=== PATIENT | male | born 1990 | race Caucasian/White ===

== ENCOUNTER 2021-11-04 16:17 | Inpatient (IN) | payer OTHER ==
[~2021-11-04] VITALS: Ht 188 cm; Wt 109.8 kg
[2021-11-04 21:10] VITALS: BP 121/61
[2021-11-04] MEDS ORDERED: VALPROIC ACID 250 MG CAPSULE PO SCH (21:30)
[2021-11-04] MEDS ORDERED: ALBUTEROL SULFATE 2.5 MG/0.5 ML NEB SOLUTION NEB PRN (21:30)
[2021-11-04] MEDS ORDERED: IPRATROPIUM BROMIDE 0.5 MG/2.5 ML NEB SOLUTION NEB PRN (21:30)
[2021-11-04] MEDS ORDERED: ACETAMINOPHEN 325 MG TABLET PO PRN (21:30)
[2021-11-04] MEDS ORDERED: SODIUM CHLORIDE 0.9% 250 ML IV ONE (22:13)
[2021-11-04] MEDS: CHLORHEXIDINE GLUCONATE 0.12% 15 ML UDCUP ORAL RINSE PO SCH (22:29)
[2021-11-04] MEDS: MEROPENEM 2 GM in SODIUM CHLORIDE 0.9% 100 ML IV SCH (22:32)
[2021-11-04] MEDS: ETHYL ALCOHOL 62% ANTISEPTIC NASAL SANITIZER 0.6 ML AMPUL NASAL SCH (22:36)
[2021-11-05] VITALS (7 sets, daily range): BP systolic 116–141; BP diastolic 65–78
[2021-11-05] MEDS ORDERED: CloNIDine HCL 0.2 MG TABLET PO SCH
[2021-11-05] MEDS ORDERED: ACETAMINOPHEN 325 MG TABLET PO SCH
[2021-11-05] MEDS: VALPROIC ACID 250 MG CAPSULE PO SCH ×4 (00:14→23:48)
[2021-11-05] MEDS: MELATONIN 5 MG TABLET PO SCH ×2 (00:14→20:39)
[2021-11-05] MEDS: DIAZEPAM 2 MG TABLET PO SCH ×4 (00:15→23:47)
[2021-11-05] MEDS: CloNIDine HCL 0.2 MG TABLET PO SCH ×5 (00:15→23:48)
[2021-11-05] MEDS: PROPRANOLOL HCL 20 MG TABLET PO SCH ×5 (00:15→23:48)
[2021-11-05] MEDS: 0.9% SODIUM CHLORIDE 10 ML SYRINGE IVP SCH ×4 (00:35→23:45)
[2021-11-05] MEDS: MEROPENEM 2 GM in SODIUM CHLORIDE 0.9% 100 ML IV SCH ×3 (05:47→22:02)
[2021-11-05] MEDS: ACETAMINOPHEN 325 MG TABLET PO SCH ×3 (05:50→17:36)
[2021-11-05 06:57] LABS: BASOPHILS % (AUTO) 2.2 % (0.0-2.0); EOSINOPHILS % (AUTO) 9.4 % (1.0-6.0); HEMATOCRIT 34.8 % (41-53); HEMOGLOBIN 11.7 g/dL (13.5-17.5); LYMPHOCYTES # (AUTO) 1.8 K/uL (1.0-4.8); LYMPHOCYTES % (AUTO) 35.7 % (22.0-44.0); MEAN CORPUSCULAR HEMOGLOBIN 28.2 pg (26.0-34.0); MEAN CORPUSCULAR HGB CONC 33.7 G/dL (31.0-37.0); MEAN CORPUSCULAR VOLUME 84 fL (80-100); MONOCYTES # (AUTO) 0.4 K/uL (0.1-1.0); MONOCYTES % (AUTO) 8.6 % (2.0-9.0); NEUTROPHILS # (AUTO) 2.2 K/uL (1.8-7.7); NEUTROPHILS % (AUTO) 44.1 % (40.0-70.0); PLATELET COUNT (AUTO) 215 K/uL (150-450); RED BLOOD CELL COUNT(AUTO) 4.16 MIL/uL (4.50-5.90); RED CELL DISTRIBUTION WIDTH 16.8 % (11.5-14.5)
[2021-11-05 07:08] LABS: ALANINE AMINOTRANSFERASE 33 U/L (12-78); ALBUMIN 3.2 g/dL (3.4-5.0); ALKALINE PHOSPHATASE 212 U/L (46-116); ANION GAP 9 mmol/L (8-16); ASPARTATE AMINOTRANSFERASE 21 U/L (15-37); BILIRUBIN,TOTAL 0.4 mg/dL (0.1-1.0); CALCIUM, TOTAL 9.3 mg/dL (8.8-10.5); CARBON DIOXIDE 28 mmol/L (22-29); CHLORIDE 103 mmol/L (98-107); CREATININE 0.74 mg/dL (0.60-1.30); GLOMERULAR FILTR. RATE CALC > 60 mL/min (>60); GLUCOSE,RANDOM 89 mg/dL (70-110); POTASSIUM 4.1 mmol/L (3.5-5.1); SODIUM SERUM 140 mmol/L (136-145); UREA NITROGEN, BLOOD 13 mg/dL (7-18)
[2021-11-05] MEDS: FERROUS SULFATE 325 MG EC TABLET PO SCH ×2 (08:39→16:22)
[2021-11-05] MEDS: POLYETHYLENE GLYCOL 3350 17 GM PACKET PO SCH ×2 (08:42→20:39)
[2021-11-05] MEDS: DOCUSATE SODIUM 100 MG CAPSULE PO SCH ×2 (08:42→20:37)
[2021-11-05] MEDS: ETHYL ALCOHOL 62% ANTISEPTIC NASAL SANITIZER 0.6 ML AMPUL NASAL SCH ×2 (08:42→20:37)
[2021-11-05] MEDS: CHLORHEXIDINE GLUCONATE 0.12% 15 ML UDCUP ORAL RINSE PO SCH ×3 (08:43→20:39)
[2021-11-05] MEDS: MULTIVITAMINS WITH MINERALS, THERAPEUTIC TABLET PO SCH (08:44)
[2021-11-05] MEDS: QUEtiapine FUMARATE 25 MG TABLET PO SCH ×3 (08:46→16:25)
[2021-11-05] MEDS: ENOXAPARIN SODIUM 60 MG/0.6 ML PF SYRINGE SQ SCH ×2 (10:05→20:40)
[2021-11-05] MEDS: AMPICILLIN SODIUM 2 GM/NS 100 ML IV SCH ×3 (13:38→20:37)
[2021-11-05] MEDS: QUEtiapine FUMARATE 100 MG TABLET PO SCH (20:38)
[2021-11-05] MEDS: SENNA 187 MG TABLET PO SCH (20:38)
[2021-11-05] MEDS: CHLORHEXIDINE GLUCONATE 4% 118 ML TOPICAL LIQUID TP SCH (20:39)
[2021-11-05] MEDS ORDERED: MELATONIN 5 MG TABLET PO SCH (21:00)
[2021-11-06] VITALS: BP 116/67
[2021-11-06] MEDS: ACETAMINOPHEN 325 MG TABLET PO SCH ×4 (00:19→17:55)
[2021-11-06] MEDS: AMPICILLIN SODIUM 2 GM/NS 100 ML IV SCH ×6 (01:01→19:47)
[2021-11-06] MEDS ORDERED: SODIUM CHLORIDE 0.9% 250 ML IV ONE (04:02)
[2021-11-06] MEDS: MEROPENEM 2 GM in SODIUM CHLORIDE 0.9% 100 ML IV SCH ×3 (06:17→22:10)
[2021-11-06] MEDS: CloNIDine HCL 0.2 MG TABLET PO SCH ×3 (06:18→17:29)
[2021-11-06] MEDS: 0.9% SODIUM CHLORIDE 10 ML SYRINGE IVP SCH ×2 (08:00→15:45)
[2021-11-06 09:00] VITALS: BP 106/54
[2021-11-06] MEDS: ETHYL ALCOHOL 62% ANTISEPTIC NASAL SANITIZER 0.6 ML AMPUL NASAL SCH ×2 (09:57→19:48)
[2021-11-06] MEDS: FERROUS SULFATE 325 MG EC TABLET PO SCH ×2 (09:58→16:38)
[2021-11-06] MEDS: DIAZEPAM 2 MG TABLET PO SCH ×2 (10:02→15:46)
[2021-11-06] MEDS: VALPROIC ACID 250 MG CAPSULE PO SCH ×2 (10:03→15:45)
[2021-11-06] MEDS: PROPRANOLOL HCL 20 MG TABLET PO SCH ×2 (10:05→15:45)
[2021-11-06] MEDS: POLYETHYLENE GLYCOL 3350 17 GM PACKET PO SCH ×2 (10:07→19:49)
[2021-11-06] MEDS: DOCUSATE SODIUM 100 MG CAPSULE PO SCH ×2 (10:07→19:48)
[2021-11-06] MEDS: QUEtiapine FUMARATE 25 MG TABLET PO SCH ×3 (10:08→16:38)
[2021-11-06] MEDS: CHLORHEXIDINE GLUCONATE 0.12% 15 ML UDCUP ORAL RINSE PO SCH ×3 (10:08→19:49)
[2021-11-06] MEDS: MULTIVITAMINS WITH MINERALS, THERAPEUTIC TABLET PO SCH (10:09)
[2021-11-06] MEDS: ENOXAPARIN SODIUM 60 MG/0.6 ML PF SYRINGE SQ SCH ×2 (10:09→19:50)
[2021-11-06 16:30] VITALS: BP 123/71
[2021-11-06] MEDS: SENNA 187 MG TABLET PO SCH (19:49)
[2021-11-06] MEDS: MELATONIN 5 MG TABLET PO SCH (19:49)
[2021-11-06] MEDS: QUEtiapine FUMARATE 100 MG TABLET PO SCH (19:50)
[2021-11-06] MEDS: CHLORHEXIDINE GLUCONATE 4% 118 ML TOPICAL LIQUID TP SCH (19:50)
[2021-11-07 00:20] VITALS: BP 130/86
[2021-11-07] MEDS: CloNIDine HCL 0.2 MG TABLET PO SCH ×4 (00:34→17:46)
[2021-11-07] MEDS: VALPROIC ACID 250 MG CAPSULE PO SCH ×3 (00:34→16:27)
[2021-11-07] MEDS: PROPRANOLOL HCL 20 MG TABLET PO SCH ×3 (00:34→16:31)
[2021-11-07] MEDS: DIAZEPAM 2 MG TABLET PO SCH ×3 (00:34→20:37)
[2021-11-07] MEDS: ACETAMINOPHEN 325 MG TABLET PO SCH ×4 (00:35→17:55)
[2021-11-07] MEDS: AMPICILLIN SODIUM 2 GM/NS 100 ML IV SCH ×7 (00:39→23:18)
[2021-11-07] MEDS: 0.9% SODIUM CHLORIDE 10 ML SYRINGE IVP SCH ×3 (00:49→16:26)
[2021-11-07] MEDS: MEROPENEM 2 GM in SODIUM CHLORIDE 0.9% 100 ML IV SCH ×3 (05:43→21:41)
[2021-11-07 05:55] VITALS: BP 139/82
[2021-11-07] MEDS: CHLORHEXIDINE GLUCONATE 0.12% 15 ML UDCUP ORAL RINSE PO SCH ×3 (08:31→20:38)
[2021-11-07] MEDS: ETHYL ALCOHOL 62% ANTISEPTIC NASAL SANITIZER 0.6 ML AMPUL NASAL SCH ×2 (08:31→20:35)
[2021-11-07] MEDS: POLYETHYLENE GLYCOL 3350 17 GM PACKET PO SCH ×2 (08:32→20:39)
[2021-11-07] MEDS: QUEtiapine FUMARATE 25 MG TABLET PO SCH ×2 (08:34→12:29)
[2021-11-07] MEDS: FERROUS SULFATE 325 MG EC TABLET PO SCH ×2 (08:34→17:38)
[2021-11-07] MEDS: MULTIVITAMINS WITH MINERALS, THERAPEUTIC TABLET PO SCH (08:35)
[2021-11-07] MEDS: DOCUSATE SODIUM 100 MG CAPSULE PO SCH ×2 (08:35→20:36)
[2021-11-07] MEDS: ENOXAPARIN SODIUM 60 MG/0.6 ML PF SYRINGE SQ SCH (08:37)
[2021-11-07 11:04] VITALS: BP 141/82
[2021-11-07] MEDS ORDERED: OxyCODONE HCL 5 MG IR TABLET PO PRN (11:45)
[2021-11-07 12:00] VITALS: BP 133/73
[2021-11-07] MEDS ORDERED: SODIUM CHLORIDE 0.9% 250 ML IV ONE (14:07)
[2021-11-07 16:05] VITALS: BP 115/63
[2021-11-07 17:30] VITALS: BP 130/70
[2021-11-07] MEDS: SENNA 187 MG TABLET PO SCH (20:36)
[2021-11-07] MEDS: MELATONIN 5 MG TABLET PO SCH (20:37)
[2021-11-07] MEDS: ENOXAPARIN SODIUM 100 MG/ML PF SYRINGE SQ SCH (20:39)
[2021-11-07] MEDS: CHLORHEXIDINE GLUCONATE 4% 118 ML TOPICAL LIQUID TP SCH (20:40)
[2021-11-07] MEDS: QUEtiapine FUMARATE 100 MG TABLET PO SCH (20:41)
[2021-11-08 01:10] VITALS: BP 121/68
[2021-11-08] MEDS: PROPRANOLOL HCL 20 MG TABLET PO SCH ×4 (01:12→23:33)
[2021-11-08] MEDS: CloNIDine HCL 0.2 MG TABLET PO SCH ×5 (01:13→23:33)
[2021-11-08] MEDS: VALPROIC ACID 250 MG CAPSULE PO SCH ×4 (01:13→23:33)
[2021-11-08] MEDS: ACETAMINOPHEN 325 MG TABLET PO SCH ×4 (01:13→18:10)
[2021-11-08] MEDS: AMPICILLIN SODIUM 2 GM/NS 100 ML IV SCH ×6 (04:54→23:34)
[2021-11-08] MEDS: MEROPENEM 2 GM in SODIUM CHLORIDE 0.9% 100 ML IV SCH ×3 (05:32→21:22)
[2021-11-08 06:00] VITALS: BP 120/74
[2021-11-08] MEDS: FERROUS SULFATE 325 MG EC TABLET PO SCH ×2 (07:47→18:10)
[2021-11-08] MEDS: ETHYL ALCOHOL 62% ANTISEPTIC NASAL SANITIZER 0.6 ML AMPUL NASAL SCH ×2 (07:59→21:22)
[2021-11-08] MEDS: POLYETHYLENE GLYCOL 3350 17 GM PACKET PO SCH ×2 (08:00→21:20)
[2021-11-08] MEDS: MULTIVITAMINS WITH MINERALS, THERAPEUTIC TABLET PO SCH (08:01)
[2021-11-08] MEDS: DIAZEPAM 2 MG TABLET PO SCH ×2 (08:01→21:21)
[2021-11-08] MEDS: QUEtiapine FUMARATE 25 MG TABLET PO SCH ×2 (08:01→12:43)
[2021-11-08] MEDS: DOCUSATE SODIUM 100 MG CAPSULE PO SCH ×2 (08:02→21:20)
[2021-11-08 08:03] VITALS: BP 114/64
[2021-11-08] MEDS: ENOXAPARIN SODIUM 100 MG/ML PF SYRINGE SQ SCH ×2 (08:28→21:21)
[2021-11-08] MEDS: CHLORHEXIDINE GLUCONATE 0.12% 15 ML UDCUP ORAL RINSE PO SCH ×3 (08:28→21:19)
[2021-11-08] MEDS: 0.9% SODIUM CHLORIDE 10 ML SYRINGE IVP SCH ×3 (08:29→15:30)
[2021-11-08 12:29] VITALS: BP 125/71
[2021-11-08] MEDS: OxyCODONE HCL 5 MG IR TABLET PO PRN (14:29)
[2021-11-08 16:01] VITALS: BP 127/68
[2021-11-08 18:00] VITALS: BP 115/66
[2021-11-08] MEDS: MELATONIN 5 MG TABLET PO SCH (21:20)
[2021-11-08] MEDS: SENNA 187 MG TABLET PO SCH (21:20)
[2021-11-08] MEDS: QUEtiapine FUMARATE 100 MG TABLET PO SCH (21:21)
[2021-11-08] MEDS: CHLORHEXIDINE GLUCONATE 4% 118 ML TOPICAL LIQUID TP SCH (21:22)
[2021-11-09 00:13] VITALS: BP 106/61
[2021-11-09] MEDS: 0.9% SODIUM CHLORIDE 10 ML SYRINGE IVP SCH ×4 (00:16→23:44)
[2021-11-09] MEDS: ACETAMINOPHEN 325 MG TABLET PO SCH ×4 (01:28→18:44)
[2021-11-09] MEDS: AMPICILLIN SODIUM 2 GM/NS 100 ML IV SCH ×6 (03:47→23:35)
[2021-11-09] MEDS: MEROPENEM 2 GM in SODIUM CHLORIDE 0.9% 100 ML IV SCH ×3 (05:26→22:01)
[2021-11-09 05:27] VITALS: BP 122/60
[2021-11-09] MEDS: CloNIDine HCL 0.2 MG TABLET PO SCH ×3 (05:27→18:07)
[2021-11-09] MEDS: CHLORHEXIDINE GLUCONATE 0.12% 15 ML UDCUP ORAL RINSE PO SCH ×3 (08:21→21:21)
[2021-11-09] MEDS: POLYETHYLENE GLYCOL 3350 17 GM PACKET PO SCH ×2 (08:21→21:21)
[2021-11-09] MEDS: ENOXAPARIN SODIUM 100 MG/ML PF SYRINGE SQ SCH ×2 (08:22→21:22)
[2021-11-09] MEDS: VALPROIC ACID 250 MG CAPSULE PO SCH ×2 (08:22→15:40)
[2021-11-09] MEDS: PROPRANOLOL HCL 20 MG TABLET PO SCH ×2 (08:22→15:49)
[2021-11-09] MEDS: DIAZEPAM 2 MG TABLET PO SCH ×2 (08:23→21:23)
[2021-11-09] MEDS: MULTIVITAMINS WITH MINERALS, THERAPEUTIC TABLET PO SCH (08:23)
[2021-11-09] MEDS: DOCUSATE SODIUM 100 MG CAPSULE PO SCH ×2 (08:23→21:20)
[2021-11-09] MEDS: QUEtiapine FUMARATE 25 MG TABLET PO SCH ×2 (08:23→12:31)
[2021-11-09] MEDS: ETHYL ALCOHOL 62% ANTISEPTIC NASAL SANITIZER 0.6 ML AMPUL NASAL SCH ×2 (08:23→21:18)
[2021-11-09] MEDS: FERROUS SULFATE 325 MG EC TABLET PO SCH ×2 (08:23→16:47)
[2021-11-09 10:57] VITALS: BP 135/81
[2021-11-09 12:25] VITALS: BP 137/77
[2021-11-09 16:05] VITALS: BP 122/78
[2021-11-09] MEDS ORDERED: SODIUM CHLORIDE 0.9% 250 ML IV ONE (20:40)
[2021-11-09 21:00] VITALS: BP 132/75
[2021-11-09] MEDS: QUEtiapine FUMARATE 100 MG TABLET PO SCH (21:21)
[2021-11-09] MEDS: SENNA 187 MG TABLET PO SCH (21:21)
[2021-11-09] MEDS: MELATONIN 5 MG TABLET PO SCH (21:21)
[2021-11-09] MEDS: CHLORHEXIDINE GLUCONATE 4% 118 ML TOPICAL LIQUID TP SCH (21:22)
[2021-11-10] VITALS: BP 114/72
[2021-11-10] MEDS: CloNIDine HCL 0.2 MG TABLET PO SCH ×5 (00:17→23:31)
[2021-11-10] MEDS: PROPRANOLOL HCL 20 MG TABLET PO SCH ×4 (00:17→23:31)
[2021-11-10] MEDS: VALPROIC ACID 250 MG CAPSULE PO SCH ×4 (00:19→23:31)
[2021-11-10] MEDS: ACETAMINOPHEN 325 MG TABLET PO SCH ×5 (02:09→23:31)
[2021-11-10] MEDS: AMPICILLIN SODIUM 2 GM/NS 100 ML IV SCH ×5 (03:56→22:26)
[2021-11-10] MEDS: MEROPENEM 2 GM in SODIUM CHLORIDE 0.9% 100 ML IV SCH ×3 (06:16→21:45)
[2021-11-10] MEDS: POLYETHYLENE GLYCOL 3350 17 GM PACKET PO SCH ×2 (09:00→20:24)
[2021-11-10 09:06] VITALS: BP 113/61
[2021-11-10] MEDS: FERROUS SULFATE 325 MG EC TABLET PO SCH ×2 (09:24→17:13)
[2021-11-10] MEDS: 0.9% SODIUM CHLORIDE 10 ML SYRINGE IVP SCH ×3 (09:24→23:52)
[2021-11-10] MEDS: DIAZEPAM 2 MG TABLET PO SCH ×2 (09:25→20:26)
[2021-11-10] MEDS: CHLORHEXIDINE GLUCONATE 0.12% 15 ML UDCUP ORAL RINSE PO SCH ×3 (09:25→20:25)
[2021-11-10] MEDS: MULTIVITAMINS WITH MINERALS, THERAPEUTIC TABLET PO SCH (09:25)
[2021-11-10] MEDS: QUEtiapine FUMARATE 25 MG TABLET PO SCH (09:25)
[2021-11-10] MEDS: DOCUSATE SODIUM 100 MG CAPSULE PO SCH ×2 (09:25→20:23)
[2021-11-10] MEDS: ENOXAPARIN SODIUM 100 MG/ML PF SYRINGE SQ SCH ×2 (09:25→20:26)
[2021-11-10] MEDS: ETHYL ALCOHOL 62% ANTISEPTIC NASAL SANITIZER 0.6 ML AMPUL NASAL SCH ×2 (09:25→20:22)
[2021-11-10 14:14] VITALS: BP 131/79
[2021-11-10 16:05] VITALS: BP 120/78
[2021-11-10] MEDS: MELATONIN 5 MG TABLET PO SCH (20:24)
[2021-11-10] MEDS: QUEtiapine FUMARATE 100 MG TABLET PO SCH (20:25)
[2021-11-10] MEDS: SENNA 187 MG TABLET PO SCH (20:25)
[2021-11-10] MEDS: CHLORHEXIDINE GLUCONATE 4% 118 ML TOPICAL LIQUID TP SCH (20:25)
[2021-11-10 21:00] VITALS: BP 131/76
[2021-11-11] VITALS: BP 112/59
[2021-11-11] MEDS: AMPICILLIN SODIUM 2 GM/NS 100 ML IV SCH ×6 (03:10→22:30)
[2021-11-11] MEDS: MEROPENEM 2 GM in SODIUM CHLORIDE 0.9% 100 ML IV SCH ×3 (05:46→21:52)
[2021-11-11] MEDS: CloNIDine HCL 0.2 MG TABLET PO SCH ×3 (05:51→23:38)
[2021-11-11] MEDS: ACETAMINOPHEN 325 MG TABLET PO SCH ×4 (05:52→23:32)
[2021-11-11 06:00] VITALS: BP 115/69
[2021-11-11] MEDS: ENOXAPARIN SODIUM 100 MG/ML PF SYRINGE SQ SCH ×2 (08:07→20:43)
[2021-11-11] MEDS: CHLORHEXIDINE GLUCONATE 0.12% 15 ML UDCUP ORAL RINSE PO SCH ×3 (08:07→20:44)
[2021-11-11 08:08] LABS: BASOPHILS % (AUTO) 3.1 % (0.0-2.0); EOSINOPHILS % (AUTO) 7.5 % (1.0-6.0); HEMATOCRIT 36.6 % (41-53); HEMOGLOBIN 12.1 g/dL (13.5-17.5); LYMPHOCYTES # (AUTO) 1.6 K/uL (1.0-4.8); LYMPHOCYTES % (AUTO) 34.8 % (22.0-44.0); MEAN CORPUSCULAR HEMOGLOBIN 28.1 pg (26.0-34.0); MEAN CORPUSCULAR HGB CONC 33.1 G/dL (31.0-37.0); MEAN CORPUSCULAR VOLUME 85 fL (80-100); MONOCYTES # (AUTO) 0.5 K/uL (0.1-1.0); MONOCYTES % (AUTO) 10.3 % (2.0-9.0); NEUTROPHILS % (AUTO) 44.3 % (40.0-70.0); PLATELET COUNT (AUTO) 182 K/uL (150-450); RED BLOOD CELL COUNT(AUTO) 4.32 MIL/uL (4.50-5.90); RED CELL DISTRIBUTION WIDTH 16.2 % (11.5-14.5)
[2021-11-11] MEDS: PROPRANOLOL HCL 20 MG TABLET PO SCH ×3 (08:08→23:38)
[2021-11-11] MEDS: VALPROIC ACID 250 MG CAPSULE PO SCH ×3 (08:08→23:38)
[2021-11-11] MEDS: ETHYL ALCOHOL 62% ANTISEPTIC NASAL SANITIZER 0.6 ML AMPUL NASAL SCH ×2 (08:08→20:42)
[2021-11-11] MEDS: FERROUS SULFATE 325 MG EC TABLET PO SCH ×2 (08:08→16:51)
[2021-11-11] MEDS: MULTIVITAMINS WITH MINERALS, THERAPEUTIC TABLET PO SCH (08:08)
[2021-11-11] MEDS: DOCUSATE SODIUM 100 MG CAPSULE PO SCH ×2 (08:08→20:44)
[2021-11-11] MEDS: POLYETHYLENE GLYCOL 3350 17 GM PACKET PO SCH ×2 (08:09→20:43)
[2021-11-11] MEDS: 0.9% SODIUM CHLORIDE 10 ML SYRINGE IVP SCH ×3 (08:10→23:25)
[2021-11-11 08:17] LABS: ANION GAP 6 mmol/L (8-16); CARBON DIOXIDE 29 mmol/L (22-29); CHLORIDE 106 mmol/L (98-107); CREATININE 0.69 mg/dL (0.60-1.30); GLUCOSE,RANDOM 87 mg/dL (70-110); SODIUM SERUM 141 mmol/L (136-145); UREA NITROGEN, BLOOD 13 mg/dL (7-18)
[2021-11-11 08:18] LABS: GLOMERULAR FILTR. RATE CALC > 60 mL/min (>60)
[2021-11-11 08:28] LABS: VALPROIC ACID < 3 mcg/mL (50-100)
[2021-11-11] MEDS ORDERED: QUEtiapine FUMARATE 25 MG TABLET PO SCH (09:00)
[2021-11-11 09:15] VITALS: BP 126/73
[2021-11-11 16:30] VITALS: BP 120/74
[2021-11-11] MEDS: SENNA 187 MG TABLET PO SCH (20:42)
[2021-11-11] MEDS: DIAZEPAM 2 MG TABLET PO SCH (20:43)
[2021-11-11] MEDS: QUEtiapine FUMARATE 100 MG TABLET PO SCH (20:44)
[2021-11-11] MEDS: MELATONIN 5 MG TABLET PO SCH (20:44)
[2021-11-11] MEDS: CHLORHEXIDINE GLUCONATE 4% 118 ML TOPICAL LIQUID TP SCH (20:56)
[2021-11-11 21:05] VITALS: BP 132/68
[2021-11-12] VITALS: BP 121/68
[2021-11-12] MEDS: AMPICILLIN SODIUM 2 GM/NS 100 ML IV SCH ×6 (03:31→22:33)
[2021-11-12] MEDS: MEROPENEM 2 GM in SODIUM CHLORIDE 0.9% 100 ML IV SCH ×3 (05:51→21:28)
[2021-11-12] MEDS: ACETAMINOPHEN 325 MG TABLET PO SCH ×3 (06:00→17:59)
[2021-11-12] MEDS: MULTIVITAMINS WITH MINERALS, THERAPEUTIC TABLET PO SCH (07:14)
[2021-11-12] MEDS: PROPRANOLOL HCL 20 MG TABLET PO SCH ×3 (07:14→23:27)
[2021-11-12] MEDS: POLYETHYLENE GLYCOL 3350 17 GM PACKET PO SCH ×2 (07:14→21:15)
[2021-11-12] MEDS: ENOXAPARIN SODIUM 100 MG/ML PF SYRINGE SQ SCH ×2 (07:14→21:18)
[2021-11-12] MEDS: FERROUS SULFATE 325 MG EC TABLET PO SCH ×2 (07:14→17:41)
[2021-11-12] MEDS: VALPROIC ACID 250 MG CAPSULE PO SCH ×3 (07:14→23:25)
[2021-11-12] MEDS: CHLORHEXIDINE GLUCONATE 0.12% 15 ML UDCUP ORAL RINSE PO SCH ×3 (07:14→21:18)
[2021-11-12] MEDS: DOCUSATE SODIUM 100 MG CAPSULE PO SCH ×2 (07:14→21:15)
[2021-11-12 07:15] VITALS: BP 144/83
[2021-11-12] MEDS: CloNIDine HCL 0.2 MG TABLET PO SCH ×3 (07:21→23:25)
[2021-11-12] MEDS: ETHYL ALCOHOL 62% ANTISEPTIC NASAL SANITIZER 0.6 ML AMPUL NASAL SCH ×2 (07:31→21:15)
[2021-11-12] MEDS: 0.9% SODIUM CHLORIDE 10 ML SYRINGE IVP SCH ×3 (09:05→23:35)
[2021-11-12 16:03] VITALS: BP 129/67
[2021-11-12 20:40] VITALS: BP 133/67
[2021-11-12] MEDS: SENNA 187 MG TABLET PO SCH (21:16)
[2021-11-12] MEDS: MELATONIN 5 MG TABLET PO SCH (21:16)
[2021-11-12] MEDS: DIAZEPAM 2 MG TABLET PO SCH (21:17)
[2021-11-12] MEDS: QUEtiapine FUMARATE 100 MG TABLET PO SCH (21:18)
[2021-11-12] MEDS: CHLORHEXIDINE GLUCONATE 4% 118 ML TOPICAL LIQUID TP SCH (21:18)
[2021-11-13] VITALS: BP 130/74
[2021-11-13] MEDS: ACETAMINOPHEN 325 MG TABLET PO SCH ×4 (00:28→17:59)
[2021-11-13] MEDS: AMPICILLIN SODIUM 2 GM/NS 100 ML IV SCH ×6 (03:29→22:25)
[2021-11-13] MEDS: MEROPENEM 2 GM in SODIUM CHLORIDE 0.9% 100 ML IV SCH ×3 (05:47→21:22)
[2021-11-13] MEDS: FERROUS SULFATE 325 MG EC TABLET PO SCH ×2 (07:56→17:24)
[2021-11-13] MEDS: CloNIDine HCL 0.2 MG TABLET PO SCH ×3 (07:59→23:20)
[2021-11-13] MEDS: VALPROIC ACID 250 MG CAPSULE PO SCH ×3 (08:00→23:19)
[2021-11-13] MEDS: PROPRANOLOL HCL 20 MG TABLET PO SCH ×3 (08:00→23:18)
[2021-11-13] MEDS: ETHYL ALCOHOL 62% ANTISEPTIC NASAL SANITIZER 0.6 ML AMPUL NASAL SCH ×2 (08:01→21:07)
[2021-11-13] MEDS: DOCUSATE SODIUM 100 MG CAPSULE PO SCH ×2 (08:01→21:05)
[2021-11-13] MEDS: CHLORHEXIDINE GLUCONATE 0.12% 15 ML UDCUP ORAL RINSE PO SCH ×3 (08:01→21:07)
[2021-11-13] MEDS: MULTIVITAMINS WITH MINERALS, THERAPEUTIC TABLET PO SCH (08:01)
[2021-11-13] MEDS: POLYETHYLENE GLYCOL 3350 17 GM PACKET PO SCH ×2 (08:01→21:07)
[2021-11-13] MEDS: ENOXAPARIN SODIUM 100 MG/ML PF SYRINGE SQ SCH ×2 (08:02→21:08)
[2021-11-13] MEDS: 0.9% SODIUM CHLORIDE 10 ML SYRINGE IVP SCH ×3 (08:07→23:26)
[2021-11-13 09:17] VITALS: BP 125/86
[2021-11-13] MEDS ORDERED: HYPROMELLOSE 0.5% 15 ML OPHTHALMIC SOLUTION OU PRN (10:00)
[2021-11-13 15:10] VITALS: BP 127/77
[2021-11-13] MEDS: MELATONIN 5 MG TABLET PO SCH (21:06)
[2021-11-13] MEDS: QUEtiapine FUMARATE 100 MG TABLET PO SCH (21:06)
[2021-11-13] MEDS: SENNA 187 MG TABLET PO SCH (21:06)
[2021-11-13] MEDS: DIAZEPAM 2 MG TABLET PO SCH (21:07)
[2021-11-13] MEDS: CHLORHEXIDINE GLUCONATE 4% 118 ML TOPICAL LIQUID TP SCH (21:08)
[2021-11-14] VITALS: BP 126/77
[2021-11-14] MEDS: ACETAMINOPHEN 325 MG TABLET PO SCH ×4 (01:10→18:13)
[2021-11-14] MEDS: AMPICILLIN SODIUM 2 GM/NS 100 ML IV SCH ×3 (03:48→11:10)
[2021-11-14] MEDS: MEROPENEM 2 GM in SODIUM CHLORIDE 0.9% 100 ML IV SCH ×2 (05:47→14:40)
[2021-11-14 08:20] VITALS: BP 153/99
[2021-11-14] MEDS: FERROUS SULFATE 325 MG EC TABLET PO SCH ×2 (09:18→16:05)
[2021-11-14] MEDS: MULTIVITAMINS WITH MINERALS, THERAPEUTIC TABLET PO SCH (09:18)
[2021-11-14] MEDS: ETHYL ALCOHOL 62% ANTISEPTIC NASAL SANITIZER 0.6 ML AMPUL NASAL SCH ×2 (09:18→21:34)
[2021-11-14] MEDS: POLYETHYLENE GLYCOL 3350 17 GM PACKET PO SCH ×3 (09:19→21:34)
[2021-11-14] MEDS: ENOXAPARIN SODIUM 100 MG/ML PF SYRINGE SQ SCH ×2 (09:19→21:34)
[2021-11-14] MEDS: DOCUSATE SODIUM 100 MG CAPSULE PO SCH ×3 (09:19→21:35)
[2021-11-14] MEDS: CHLORHEXIDINE GLUCONATE 0.12% 15 ML UDCUP ORAL RINSE PO SCH ×3 (09:19→21:35)
[2021-11-14] MEDS: PROPRANOLOL HCL 20 MG TABLET PO SCH ×3 (09:20→23:28)
[2021-11-14] MEDS: VALPROIC ACID 250 MG CAPSULE PO SCH ×3 (09:20→23:28)
[2021-11-14] MEDS: CloNIDine HCL 0.2 MG TABLET PO SCH ×3 (09:21→23:28)
[2021-11-14] MEDS: 0.9% SODIUM CHLORIDE 10 ML SYRINGE IVP SCH ×3 (09:26→23:29)
[2021-11-14 16:01] VITALS: BP 134/84
[2021-11-14] MEDS: SENNA 187 MG TABLET PO SCH ×2 (21:00→21:35)
[2021-11-14] MEDS: MELATONIN 5 MG TABLET PO SCH (21:35)
[2021-11-14] MEDS: QUEtiapine FUMARATE 100 MG TABLET PO SCH (21:35)
[2021-11-14] MEDS: DIAZEPAM 2 MG TABLET PO SCH (21:36)
[2021-11-14] MEDS: CHLORHEXIDINE GLUCONATE 4% 118 ML TOPICAL LIQUID TP SCH (21:53)
[2021-11-14 23:00] VITALS: BP 129/63
[2021-11-15] VITALS: BP 129/63
[2021-11-15] MEDS: ACETAMINOPHEN 325 MG TABLET PO SCH ×4 (01:10→18:18)
[2021-11-15] MEDS: 0.9% SODIUM CHLORIDE 10 ML SYRINGE IVP SCH ×2 (07:40→15:10)
[2021-11-15] MEDS: FERROUS SULFATE 325 MG EC TABLET PO SCH ×2 (07:40→17:49)
[2021-11-15] MEDS: VALPROIC ACID 250 MG CAPSULE PO SCH ×3 (07:41→23:41)
[2021-11-15] MEDS: CloNIDine HCL 0.2 MG TABLET PO SCH ×3 (07:41→23:42)
[2021-11-15] MEDS: ETHYL ALCOHOL 62% ANTISEPTIC NASAL SANITIZER 0.6 ML AMPUL NASAL SCH ×2 (07:41→21:30)
[2021-11-15] MEDS: PROPRANOLOL HCL 20 MG TABLET PO SCH ×3 (07:41→23:41)
[2021-11-15] MEDS: MULTIVITAMINS WITH MINERALS, THERAPEUTIC TABLET PO SCH (07:41)
[2021-11-15] MEDS: DOCUSATE SODIUM 100 MG CAPSULE PO SCH ×2 (07:42→21:29)
[2021-11-15] MEDS: ENOXAPARIN SODIUM 100 MG/ML PF SYRINGE SQ SCH ×2 (07:42→21:30)
[2021-11-15] MEDS: CHLORHEXIDINE GLUCONATE 0.12% 15 ML UDCUP ORAL RINSE PO SCH ×3 (07:42→21:28)
[2021-11-15] MEDS: POLYETHYLENE GLYCOL 3350 17 GM PACKET PO SCH ×2 (07:43→21:28)
[2021-11-15 08:09] VITALS: BP 137/74
[2021-11-15 12:52] VITALS: BP 114/68
[2021-11-15 15:06] VITALS: BP 138/66
[2021-11-15 20:00] VITALS: BP 133/70
[2021-11-15] MEDS: SENNA 187 MG TABLET PO SCH (21:29)
[2021-11-15] MEDS: QUEtiapine FUMARATE 100 MG TABLET PO SCH (21:29)
[2021-11-15] MEDS: MELATONIN 5 MG TABLET PO SCH (21:29)
[2021-11-15] MEDS: DIAZEPAM 2 MG TABLET PO SCH (21:30)
[2021-11-15 23:52] VITALS: BP 132/73
[2021-11-16] MEDS: ACETAMINOPHEN 325 MG TABLET PO SCH ×4 (01:20→18:21)
[2021-11-16] MEDS ORDERED: MELA5TAB40 PO (03:47)
[2021-11-16] MEDS ORDERED: POLY17PO47 PO (03:47)
[2021-11-16] MEDS ORDERED: SENN8.6T20 PO (03:47)
[2021-11-16] MEDS ORDERED: PROP40TA7 PO (03:47)
[2021-11-16] MEDS ORDERED: OXYC5 PO (03:47)
[2021-11-16] MEDS ORDERED: VALP250C48 PO (03:47)
[2021-11-16] MEDS ORDERED: QUET100T PO (03:47)
[2021-11-16] MEDS ORDERED: DIAZ2 PO (03:47)
[2021-11-16] MEDS ORDERED: MULT-248 PO (03:47)
[2021-11-16] MEDS ORDERED: CHLO473M6 PO (03:47)
[2021-11-16] MEDS ORDERED: DOCU-385 PO (03:47)
[2021-11-16] MEDS ORDERED: CLON0.2T PO (03:47)
[2021-11-16] MEDS ORDERED: [UNRECOGNIZED DRUG - CODE] SQ (03:47)
[2021-11-16] MEDS ORDERED: ACET-2247 PO (03:47)
[2021-11-16] MEDS ORDERED: FERR325T27 PO (03:47)
[2021-11-16] MEDS: DOCUSATE SODIUM 100 MG CAPSULE PO SCH ×2 (07:56→20:43)
[2021-11-16] MEDS: CHLORHEXIDINE GLUCONATE 0.12% 15 ML UDCUP ORAL RINSE PO SCH ×3 (07:56→20:50)
[2021-11-16] MEDS: MULTIVITAMINS WITH MINERALS, THERAPEUTIC TABLET PO SCH (07:56)
[2021-11-16] MEDS: FERROUS SULFATE 325 MG EC TABLET PO SCH ×2 (07:56→17:36)
[2021-11-16] MEDS: ENOXAPARIN SODIUM 100 MG/ML PF SYRINGE SQ SCH ×2 (07:56→20:43)
[2021-11-16] MEDS: CloNIDine HCL 0.2 MG TABLET PO SCH ×3 (07:57→23:12)
[2021-11-16] MEDS: PROPRANOLOL HCL 20 MG TABLET PO SCH ×2 (07:57→15:56)
[2021-11-16] MEDS: VALPROIC ACID 250 MG CAPSULE PO SCH ×3 (07:58→23:12)
[2021-11-16] MEDS: ETHYL ALCOHOL 62% ANTISEPTIC NASAL SANITIZER 0.6 ML AMPUL NASAL SCH ×2 (07:58→20:42)
[2021-11-16] MEDS: POLYETHYLENE GLYCOL 3350 17 GM PACKET PO SCH ×2 (07:59→20:50)
[2021-11-16 08:10] VITALS: BP 133/91
[2021-11-16 11:14] LABS: BASOPHILS % (AUTO) 0.6 % (0.0-2.0); EOSINOPHILS % (AUTO) 6.6 % (1.0-6.0); HEMATOCRIT 42.1 % (41-53); LYMPHOCYTES # (AUTO) 2.3 K/uL (1.0-4.8); LYMPHOCYTES % (AUTO) 40.6 % (22.0-44.0); MEAN CORPUSCULAR HEMOGLOBIN 28.2 pg (26.0-34.0); MEAN CORPUSCULAR HGB CONC 33.4 G/dL (31.0-37.0); MEAN CORPUSCULAR VOLUME 85 fL (80-100); MONOCYTES # (AUTO) 0.4 K/uL (0.1-1.0); MONOCYTES % (AUTO) 7.2 % (2.0-9.0); NEUTROPHILS # (AUTO) 2.6 K/uL (1.8-7.7); PLATELET COUNT (AUTO) 248 K/uL (150-450); RED BLOOD CELL COUNT(AUTO) 4.98 MIL/uL (4.50-5.90); RED CELL DISTRIBUTION WIDTH 16.3 % (11.5-14.5)
[2021-11-16 12:19] LABS: ERYTHROCYTE SEDIMENTATION RATE 8 MM/HR (0-15)
[2021-11-16 16:00] VITALS: BP 124/76
[2021-11-16] MEDS: OxyCODONE HCL 5 MG IR TABLET PO PRN (18:33)
[2021-11-16] MEDS: DIAZEPAM 2 MG TABLET PO SCH (20:43)
[2021-11-16] MEDS: SENNA 187 MG TABLET PO SCH (20:43)
[2021-11-16] MEDS: QUEtiapine FUMARATE 100 MG TABLET PO SCH (20:43)
[2021-11-16] MEDS: MELATONIN 5 MG TABLET PO SCH (20:46)
[2021-11-16] MEDS: PROPRANOLOL HCL 40 MG TABLET PO SCH (23:11)
[2021-11-16 23:14] VITALS: BP 123/75
[2021-11-17] MEDS: ACETAMINOPHEN 325 MG TABLET PO SCH ×5 (01:59→23:00)
[2021-11-17] MEDS: CloNIDine HCL 0.2 MG TABLET PO SCH ×3 (08:42→23:00)
[2021-11-17] MEDS: PROPRANOLOL HCL 40 MG TABLET PO SCH ×3 (08:42→23:00)
[2021-11-17] MEDS: VALPROIC ACID 250 MG CAPSULE PO SCH ×3 (08:42→23:00)
[2021-11-17] MEDS: ETHYL ALCOHOL 62% ANTISEPTIC NASAL SANITIZER 0.6 ML AMPUL NASAL SCH ×2 (08:42→20:55)
[2021-11-17] MEDS: FERROUS SULFATE 325 MG EC TABLET PO SCH ×2 (08:42→16:42)
[2021-11-17] MEDS: CHLORHEXIDINE GLUCONATE 0.12% 15 ML UDCUP ORAL RINSE PO SCH ×3 (08:43→20:55)
[2021-11-17] MEDS: ENOXAPARIN SODIUM 100 MG/ML PF SYRINGE SQ SCH ×2 (08:44→21:00)
[2021-11-17] MEDS: POLYETHYLENE GLYCOL 3350 17 GM PACKET PO SCH ×2 (08:50→21:00)
[2021-11-17] MEDS: DOCUSATE SODIUM 100 MG CAPSULE PO SCH ×2 (08:50→20:55)
[2021-11-17] MEDS: MULTIVITAMINS WITH MINERALS, THERAPEUTIC TABLET PO SCH (08:53)
[2021-11-17 09:05] VITALS: BP 126/89
[2021-11-17 16:53] VITALS: BP 138/96
[2021-11-17 20:45] VITALS: BP 128/74
[2021-11-17] MEDS: MELATONIN 5 MG TABLET PO SCH (20:55)
[2021-11-17] MEDS: QUEtiapine FUMARATE 100 MG TABLET PO SCH (20:55)
[2021-11-17] MEDS: DIAZEPAM 2 MG TABLET PO SCH (20:55)
[2021-11-17] MEDS: SENNA 187 MG TABLET PO SCH (21:00)
[2021-11-17 22:55] VITALS: BP 136/75
[2021-11-18] MEDS: ACETAMINOPHEN 325 MG TABLET PO SCH ×4 (06:00→23:44)
[2021-11-18] MEDS: ETHYL ALCOHOL 62% ANTISEPTIC NASAL SANITIZER 0.6 ML AMPUL NASAL SCH ×2 (08:23→22:30)
[2021-11-18] MEDS: DOCUSATE SODIUM 100 MG CAPSULE PO SCH (08:23)
[2021-11-18] MEDS: CloNIDine HCL 0.2 MG TABLET PO SCH ×3 (08:23→23:44)
[2021-11-18] MEDS: VALPROIC ACID 250 MG CAPSULE PO SCH ×3 (08:23→23:45)
[2021-11-18] MEDS: CHLORHEXIDINE GLUCONATE 0.12% 15 ML UDCUP ORAL RINSE PO SCH ×3 (08:23→21:28)
[2021-11-18] MEDS: POLYETHYLENE GLYCOL 3350 17 GM PACKET PO SCH (08:23)
[2021-11-18] MEDS: ENOXAPARIN SODIUM 100 MG/ML PF SYRINGE SQ SCH ×2 (08:24→21:29)
[2021-11-18] MEDS: MULTIVITAMINS WITH MINERALS, THERAPEUTIC TABLET PO SCH (08:24)
[2021-11-18] MEDS: PROPRANOLOL HCL 40 MG TABLET PO SCH ×3 (08:24→23:44)
[2021-11-18] MEDS: FERROUS SULFATE 325 MG EC TABLET PO SCH ×2 (08:24→17:39)
[2021-11-18 09:42] VITALS: BP 134/99
[2021-11-18] MEDS ORDERED: SENNA 187 MG TABLET PO PRN (16:15)
[2021-11-18] MEDS ORDERED: POLYETHYLENE GLYCOL 3350 17 GM PACKET PO PRN (16:15)
[2021-11-18] MEDS ORDERED: DOCUSATE SODIUM 100 MG CAPSULE PO PRN (16:15)
[2021-11-18 16:30] VITALS: BP 135/85
[2021-11-18 21:00] VITALS: BP 130/73
[2021-11-18] MEDS: DIAZEPAM 2 MG TABLET PO SCH (21:28)
[2021-11-18] MEDS: MELATONIN 5 MG TABLET PO SCH (21:29)
[2021-11-18] MEDS: QUEtiapine FUMARATE 100 MG TABLET PO SCH (21:29)
[2021-11-19] MEDS: ACETAMINOPHEN 325 MG TABLET PO SCH ×4 (06:20→23:46)
[2021-11-19 08:05] VITALS: BP 147/67
[2021-11-19] MEDS: FERROUS SULFATE 325 MG EC TABLET PO SCH ×2 (08:20→17:43)
[2021-11-19] MEDS: PROPRANOLOL HCL 40 MG TABLET PO SCH ×3 (08:21→23:42)
[2021-11-19] MEDS: ETHYL ALCOHOL 62% ANTISEPTIC NASAL SANITIZER 0.6 ML AMPUL NASAL SCH ×2 (08:21→20:59)
[2021-11-19] MEDS: MULTIVITAMINS WITH MINERALS, THERAPEUTIC TABLET PO SCH (08:21)
[2021-11-19] MEDS: CloNIDine HCL 0.2 MG TABLET PO SCH ×3 (08:21→23:42)
[2021-11-19] MEDS: CHLORHEXIDINE GLUCONATE 0.12% 15 ML UDCUP ORAL RINSE PO SCH ×3 (08:21→20:59)
[2021-11-19] MEDS: VALPROIC ACID 250 MG CAPSULE PO SCH ×3 (08:21→23:42)
[2021-11-19] MEDS: ENOXAPARIN SODIUM 100 MG/ML PF SYRINGE SQ SCH ×2 (08:21→20:59)
[2021-11-19 09:32] LABS: ALANINE AMINOTRANSFERASE 52 U/L (12-78); ALBUMIN 3.6 g/dL (3.4-5.0); ALKALINE PHOSPHATASE 170 U/L (46-116); ANION GAP 10 mmol/L (8-16); ASPARTATE AMINOTRANSFERASE 22 U/L (15-37); BILIRUBIN,TOTAL 0.4 mg/dL (0.1-1.0); CALCIUM, TOTAL 9.1 mg/dL (8.8-10.5); CARBON DIOXIDE 26 mmol/L (22-29); CHLORIDE 102 mmol/L (98-107); CREATININE 0.86 mg/dL (0.60-1.30); GLUCOSE,RANDOM 109 mg/dL (70-110); POTASSIUM 3.6 mmol/L (3.5-5.1); SODIUM SERUM 138 mmol/L (136-145); TOTAL PROTEIN, SERUM 7.6 g/dL (6.4-8.2); UREA NITROGEN, BLOOD 13 mg/dL (7-18)
[2021-11-19 09:33] LABS: GLOMERULAR FILTR. RATE CALC > 60 mL/min (>60)
[2021-11-19 20:30] VITALS: BP 137/70
[2021-11-19] MEDS: QUEtiapine FUMARATE 100 MG TABLET PO SCH (21:01)
[2021-11-19] MEDS: DIAZEPAM 2 MG TABLET PO SCH (21:01)
[2021-11-19] MEDS: MELATONIN 5 MG TABLET PO SCH (21:04)
[2021-11-20] MEDS: ACETAMINOPHEN 325 MG TABLET PO SCH ×4 (06:42→23:46)
[2021-11-20 08:00] VITALS: BP 123/83
[2021-11-20] MEDS: FERROUS SULFATE 325 MG EC TABLET PO SCH ×2 (09:29→16:30)
[2021-11-20] MEDS: VALPROIC ACID 250 MG CAPSULE PO SCH ×3 (09:30→23:01)
[2021-11-20] MEDS: CloNIDine HCL 0.2 MG TABLET PO SCH ×3 (09:30→23:01)
[2021-11-20] MEDS: ETHYL ALCOHOL 62% ANTISEPTIC NASAL SANITIZER 0.6 ML AMPUL NASAL SCH ×2 (09:31→21:08)
[2021-11-20] MEDS: PROPRANOLOL HCL 40 MG TABLET PO SCH ×3 (09:31→23:01)
[2021-11-20] MEDS: ENOXAPARIN SODIUM 100 MG/ML PF SYRINGE SQ SCH ×2 (09:32→21:08)
[2021-11-20] MEDS: MULTIVITAMINS WITH MINERALS, THERAPEUTIC TABLET PO SCH (09:32)
[2021-11-20] MEDS: CHLORHEXIDINE GLUCONATE 0.12% 15 ML UDCUP ORAL RINSE PO SCH ×3 (09:32→21:09)
[2021-11-20 16:14] VITALS: BP 122/70
[2021-11-20] MEDS: QUEtiapine FUMARATE 100 MG TABLET PO SCH (21:08)
[2021-11-20] MEDS: DIAZEPAM 2 MG TABLET PO SCH (21:08)
[2021-11-20] MEDS: MELATONIN 5 MG TABLET PO SCH (21:08)
[2021-11-20 23:00] VITALS: BP 138/71
[2021-11-21] MEDS: ACETAMINOPHEN 325 MG TABLET PO SCH ×4 (06:44→23:46)
[2021-11-21] MEDS: CHLORHEXIDINE GLUCONATE 0.12% 15 ML UDCUP ORAL RINSE PO SCH ×3 (08:23→20:31)
[2021-11-21] MEDS: ENOXAPARIN SODIUM 100 MG/ML PF SYRINGE SQ SCH ×2 (08:23→20:31)
[2021-11-21] MEDS: MULTIVITAMINS WITH MINERALS, THERAPEUTIC TABLET PO SCH (08:24)
[2021-11-21] MEDS: PROPRANOLOL HCL 40 MG TABLET PO SCH ×3 (08:24→23:07)
[2021-11-21] MEDS: ETHYL ALCOHOL 62% ANTISEPTIC NASAL SANITIZER 0.6 ML AMPUL NASAL SCH ×2 (08:24→20:31)
[2021-11-21] MEDS: CloNIDine HCL 0.2 MG TABLET PO SCH ×3 (08:24→23:07)
[2021-11-21] MEDS: VALPROIC ACID 250 MG CAPSULE PO SCH ×3 (08:24→23:07)
[2021-11-21] MEDS: FERROUS SULFATE 325 MG EC TABLET PO SCH ×2 (08:24→16:31)
[2021-11-21 10:15] VITALS: BP 131/74
[2021-11-21 15:11] VITALS: BP 141/89
[2021-11-21] MEDS: MELATONIN 5 MG TABLET PO SCH (20:31)
[2021-11-21] MEDS: QUEtiapine FUMARATE 100 MG TABLET PO SCH (20:31)
[2021-11-21] MEDS: DIAZEPAM 2 MG TABLET PO SCH (20:31)
[2021-11-21 22:31] VITALS: BP 131/69
[2021-11-22] MEDS: ACETAMINOPHEN 325 MG TABLET PO SCH ×3 (06:52→19:04)
[2021-11-22] MEDS: FERROUS SULFATE 325 MG EC TABLET PO SCH ×2 (08:44→17:18)
[2021-11-22 08:45] VITALS: BP 137/78
[2021-11-22] MEDS: CHLORHEXIDINE GLUCONATE 0.12% 15 ML UDCUP ORAL RINSE PO SCH ×3 (08:51→21:06)
[2021-11-22] MEDS: ETHYL ALCOHOL 62% ANTISEPTIC NASAL SANITIZER 0.6 ML AMPUL NASAL SCH ×2 (08:51→21:05)
[2021-11-22] MEDS: MULTIVITAMINS WITH MINERALS, THERAPEUTIC TABLET PO SCH (08:52)
[2021-11-22] MEDS: PROPRANOLOL HCL 40 MG TABLET PO SCH ×2 (08:52→16:24)
[2021-11-22] MEDS: CloNIDine HCL 0.2 MG TABLET PO SCH ×2 (08:52→16:24)
[2021-11-22] MEDS: VALPROIC ACID 250 MG CAPSULE PO SCH ×2 (08:52→16:24)
[2021-11-22] MEDS: ENOXAPARIN SODIUM 100 MG/ML PF SYRINGE SQ SCH ×2 (09:00→09:45)
[2021-11-22] MEDS ORDERED: DIAZEPAM 2 MG TABLET PO SCH (21:00)
[2021-11-22] MEDS: MELATONIN 5 MG TABLET PO SCH (21:05)
[2021-11-22] MEDS: QUEtiapine FUMARATE 100 MG TABLET PO SCH (21:06)
[2021-11-23] MEDS: ACETAMINOPHEN 325 MG TABLET PO SCH ×2 (00:06→06:59)
[2021-11-23] MEDS: PROPRANOLOL HCL 40 MG TABLET PO SCH ×2 (00:06→08:35)
[2021-11-23] MEDS: CloNIDine HCL 0.2 MG TABLET PO SCH ×2 (00:06→08:34)
[2021-11-23] MEDS: VALPROIC ACID 250 MG CAPSULE PO SCH ×2 (00:06→08:34)
[2021-11-23 00:10] VITALS: BP 131/81
[2021-11-23 08:30] VITALS: BP 130/78
[2021-11-23] MEDS: FERROUS SULFATE 325 MG EC TABLET PO SCH (08:34)
[2021-11-23] MEDS: MULTIVITAMINS WITH MINERALS, THERAPEUTIC TABLET PO SCH (08:35)
[2021-11-23] MEDS: CHLORHEXIDINE GLUCONATE 0.12% 15 ML UDCUP ORAL RINSE PO SCH ×2 (08:35→09:00)
[2021-11-23] MEDS: ETHYL ALCOHOL 62% ANTISEPTIC NASAL SANITIZER 0.6 ML AMPUL NASAL SCH (08:35)
== END 2021-11-23 11:20 | disposition short-term general hospital (02) | DRG 85 ==
LOC: 2WR 21:00
PROVIDERS: ADMIT Physical Medicine & Rehabilitation; ATTEND Physical Medicine & Rehabilitation
DX: S06.5X0A Traumatic subdural hemorrhage without loss of consciousness, initial encounter (principal); G04.90 Encephalitis and encephalomyelitis, unspecified; J15.0 Pneumonia due to Klebsiella pneumoniae; S22.32XA Fracture of one rib, left side, initial encounter for closed fracture; S22.31XA Fracture of one rib, right side, initial encounter for closed fracture; S82.099A Other fracture of unspecified patella, initial encounter for closed fracture; S12.490A Other displaced fracture of fifth cervical vertebra, initial encounter for closed fracture; S12.591A Other nondisplaced fracture of sixth cervical vertebra, initial encounter for closed fracture; S12.691A Other nondisplaced fracture of seventh cervical vertebra, initial encounter for closed fracture; J93.83 Other pneumothorax; S06.6X0A Traumatic subarachnoid hemorrhage without loss of consciousness, initial encounter; R32 Unspecified urinary incontinence; S42.101A Fracture of unspecified part of scapula, right shoulder, initial encounter for closed fracture; S42.102A Fracture of unspecified part of scapula, left shoulder, initial encounter for closed fracture; M54.9 Dorsalgia, unspecified; B95.2 Enterococcus as the cause of diseases classified elsewhere; B96.89 Other specified bacterial agents as the cause of diseases classified elsewhere; R00.0 Tachycardia, unspecified; V29.9XXA Motorcycle rider (driver) (passenger) injured in unspecified traffic accident, initial encounter; Y93.89 Activity, other specified; Y92.89 Other specified places as the place of occurrence of the external cause; Y99.8 Other external cause status; Z79.01 Long term (current) use of anticoagulants; Z88.8 Allergy status to other drugs, medicaments and biological substances; Z79.899 Other long term (current) drug therapy; Z20.822 Contact with and (suspected) exposure to COVID-19
CPT/HCPCS: 70450; 80048; 80053; 80164; 85025; 85651; 86140; 87081; 92507; 92523; 93970; 97110; 97112; 97116; 97163; 97530; 97535; 99366; J0290; J1650; J2185; J7050; Q9967